=== PATIENT | female | born 1940 | race Caucasian/White ===

== ENCOUNTER 2022-07-02 19:48 | Emergency (ER) | payer OTHER ==
[~2022-07-02] VITALS: Ht 152.4 cm; Wt 72.6 kg
--- NOTE | 2022-07-02 19:55 | NUR ---
PT BIBRA C/O BACK OF RT HEADED HEMATOMA S/P SYNCOPAL EPISODE ON HER WALK TO [place]. PT STATES THAT SHE FELL ON CONCRETE STAIRS. PT HAS RT ELBOW ABRAISON. PT DENIES OTHER PAIN IN OTHER AREAS. UPON ASSESSMENT, PT HAS LARGE HEMATOMA TO THE BACK OF HER HEAD THAT CAUSES HER PAIN WHEN SHE LAYS HER HEAD BACK. PT ATTACHED TO MONITOR AND POX.
--- NOTE | 2022-07-02 19:59 | NUR ---
blood sent and taken to lab
[2022-07-02] MEDS: IV NS 0.9% 1,000 ML BAG IV ONE (20:00)
--- NOTE | 2022-07-02 20:02 | NUR ---
COVID SWAB COLLECTED AND SENT TO LAB.
[2022-07-02 20:12] LABS: BASOPHILS # (AUTO) 0.1 K/uL (0.0-0.2); BASOPHILS % (AUTO) 0.8 % (0.0-2.0); EOSINOPHILS % (AUTO) 1.9 % (0.0-6.0); HEMATOCRIT 41 % (33-45); HEMOGLOBIN 13.3 g/dL (11.5-14.8); LYMPHOCYTES # (AUTO) 1.9 K/uL (0.8-4.8); LYMPHOCYTES % (AUTO) 20.4 % (20.0-44.0); MEAN CORPUSCULAR HGB CONC 33 g/dl (31.0-36.0); MEAN CORPUSCULAR VOLUME 89 fL (82-100); MONOCYTES # (AUTO) 0.6 K/uL (0.1-1.30); MONOCYTES % (AUTO) 6.8 % (2.0-12.0); NEUTROPHILS # (AUTO) 6.6 K/uL (1.8-8.9); NEUTROPHILS % (AUTO) 70.1 % (43.0-81.0); PLATELET COUNT (AUTO) 166 K/uL (150-450); RED BLOOD CELL COUNT(AUTO) 4.56 MIL/uL (4.0-5.2); WHITE BLOOD COUNT (AUTO) 9.3 K/uL (4.3-11.0)
--- NOTE | 2022-07-02 20:16 | NUR ---
XRAY AT BEDSIDE
[2022-07-02 20:24] LABS: CALCIUM, SERUM 9.4 mg/dL (8.5-10.1); CARBON DIOXIDE 26 mmol/L (21-32); CHLORIDE 103 mmol/L (98-107); CREATININE 1.2 mg/dL (0.6-1.3); GLUCOSE 297 mg/dL (74-106); POTASSIUM 4.2 mmol/L (3.5-5.1); SODIUM SERUM 137 mmol/L (136-145); UREA NITROGEN, BLOOD 20 mg/dL (7-18)
--- NOTE | 2022-07-02 20:39 | NUR ---
melissa davila son [phone]
--- NOTE | 2022-07-02 21:02 | NUR ---
SPOKE TO MAYANK, AT [place]. WILL START WORKING TO TRANSFER PT OUT. WILL CALL BACK WITH TRANSFER INFO
--- NOTE | 2022-07-02 21:28 | NUR ---
PER MAYANK, POSSIBLE [place] ER TO ER
[2022-07-02] MEDS: ASPIRIN 325 MG TABLET PO ONE (22:00)
[2022-07-02] MEDS ORDERED: ASPIRIN 325 MG TABLET ONE (22:02)
--- NOTE | 2022-07-02 22:39 | NUR ---
PER MAYANK, PT GOING TO [facility] ER TO ER TRANSFER. [facility] WILL CALL FOR PEER TO PEER WITH DR HOOKS.
--- NOTE | 2022-07-03 00:50 | NUR ---
1-PERSON ASSIST W/ AMBULATION TO RESTROOM, VOIDED X1
--- NOTE | 2022-07-03 01:59 | NUR ---
[facility] ACCEPTED ER TO ER 7 AM AGILE TEST LEAD NUMBER FOR REPORT [phone] MD YEPEZ
--- NOTE | 2022-07-03 03:30 | NUR ---
AMBULATED TO RESTROOM W/ 1-PERSON ASSIST, VOIDED X1
--- NOTE | 2022-07-03 05:54 | NUR ---
Andreia spain in [place] - 07/03/22 at 0555 by DELPHINE REPORT GIVEN TO WEI LOPEZ AT [facility]
--- NOTE | 2022-07-03 05:55 | NUR ---
REPORT GIVEN TO WEI LOPEZ [place] [facility]
--- NOTE | 2022-07-03 07:16 | NUR ---
REPORT GIVEN AT BEDSIDE TO STEPHANIE/ANGIE UN[facility]. PT GOING TO [facility].
[2022-07-03 07:32] VITALS: BP 111/59
== END 2022-07-03 07:33 | disposition short-term general hospital (02) ==
LOC: ER 19:50
DX: R55 Syncope and collapse (principal); S00.11XA Contusion of right eyelid and periocular area, initial encounter; Z20.822 Contact with and (suspected) exposure to COVID-19; W18.30XA Fall on same level, unspecified, initial encounter; Y93.89 Activity, other specified; Y92.89 Other specified places as the place of occurrence of the external cause; Y99.8 Other external cause status
CPT/HCPCS: 99291; 96360; 70450; 87426; 93005; 71045; 72170; 85025; 80048; 36415; 84484; 82962; J7030; A4223; C9803